=== PATIENT | male | born 1995 | race Caucasian/White ===

== ENCOUNTER 2019-01-12 21:29 | Emergency (ER) | payer MEDICAID ==
[~2019-01-12] VITALS: Ht 162.6 cm; Wt 70.8 kg
[2019-01-12 21:53] VITALS: BP 140/85
--- NOTE | 2019-01-12 21:56 | NUR ---
TO LOBBY A/W BED AMBULATORY
--- NOTE | 2019-01-12 23:01 | NUR ---
PT AMBULATED TO ER BED 11
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
--- NOTE | 2019-01-12 23:55 | NUR ---
DR. PALAFOX EVALUATING AT BEDSIDE.
--- NOTE | 2019-01-13 00:07 | NUR ---
EMT CLEANING OUT WOUND AT BEDSIDE.
--- NOTE | 2019-01-13 00:50 | NUR ---
BACITRACIN OINTMENT APPLIED TO ZACK PER MD ORDERS.
[2019-01-13] MEDS ORDERED: BACITRACIN OINT 500 UNITS/GM PKT TP ONE (00:56)
[2019-01-13 00:58] VITALS: BP 134/82
--- NOTE | 2019-01-13 00:58 | NUR ---
Patient discharged with v/s stable. Written and verbal after care instructions given and explained. Patient alert, oriented and verbalized understanding of instructions. Ambulatory with steady gait. All questions addressed prior to discharge. ID band removed. Patient advised to follow up with PMD. Rx of Bactroban given. Patient educated on indication of medication including possible reaction and side effects. Opportunity to ask questions provided and answered.
== END 2019-01-13 00:58 | disposition home or self-care (01) ==
LOC: MED 21:29
DX: S01.01XD Laceration without foreign body of scalp, subsequent encounter (principal); F41.9 Anxiety disorder, unspecified; X58.XXXD Exposure to other specified factors, subsequent encounter
CPT/HCPCS: 99283

== ENCOUNTER 2021-10-14 19:05 | Emergency (ER) | payer MEDICAID ==
[~2021-10-14] VITALS: Ht 162.6 cm; Wt 74.8 kg
[2021-10-14 19:29] VITALS: BP 140/67
[2021-10-14] MEDS ORDERED: KETOROLAC 60 MG/2 ML VIAL IM ONE (20:20)
[2021-10-14] MEDS ORDERED: IBUP-2213 PO (21:10)
[2021-10-14 21:15] VITALS: BP 120/79
== END 2021-10-14 21:15 | disposition home or self-care (01) ==
LOC: MED 19:05
DX: M54.50 Low back pain, unspecified (principal); F12.90 Cannabis use, unspecified, uncomplicated
CPT/HCPCS: 81002; 96372; 99283; J1885